=== PATIENT | female | born 1985 | race Caucasian/White ===

== ENCOUNTER 2023-02-13 22:27 | Emergency (ER) | payer OTHER ==
[~2023-02-13] VITALS: Ht 160 cm; Wt 73.0 kg
[2023-02-14 00:22] VITALS: BP 140/97; TEMP 98.1; O2SAT 93
== END 2023-02-14 00:34 | disposition home or self-care (01) ==
LOC: ER 22:32
DX: O36.8320 Maternal care for abnormalities of the fetal heart rate or rhythm, second trimester, not applicable or unspecified (principal); Z90.49 Acquired absence of other specified parts of digestive tract; Z60.2 Problems related to living alone; Z3A.27 27 weeks gestation of pregnancy
CPT/HCPCS: 76805-TC